=== PATIENT | male | born 1985 | race Caucasian/White ===

== ENCOUNTER 2022-08-20 08:41 | Outpatient (CLI) | payer OTHER ==
--- NOTE | 2022-08-20 09:16 | SLEEP CARE CONSULTATION ---
Information from patient questionnaire entered by Susana Bowen. I have reviewed and concur with the information entered by Susana Bowen. This document represents the service I personally performed and the decisions made by me, Alisha Hanson ARNP. History of Present Illness Service Date and Time: 08/20/2022 0841 Reason for Visit: New patient Chief Complaint: reports: Snoring, Observed pauses in breathing, Frequent awakenings at night Date of Onset: 3+YRS Usual bedtime: 9-10PM Time it takes to fall asleep: 5MIN Snores at night: Yes Observed to quit breathing while asleep: Yes Sleeps alone due to snoring: No Number of times waking at night: 2-3 Reasons for waking at night: reports: Snoring, Gasping for air (once in a while, if on his back), Other (NOISE). denies: Choking Toss, Turn, or Twitch while sleeping: Yes Recalls having dreams: No Usually gets out of bed at: 5-7 AM Feels refreshed in the morning: No Morning headache: No Sleepy or fatigued during the day: Yes Ever fallen asleep while driving: Yes (drowsy driving; no accidents) Takes day naps: No Dreams during day naps: No Prior sleep studies: Yes Year and Where: [employer] 2012 Additional HPI information: I had the pleasure of seeing NISA KEARNS today regarding the possibility of him having a sleep disorder. His current complaints are snoring, observed pauses in breathing and frequent night awakenings. He states he comes in because everyone is complaining of his snoring. His will push him to turn on his left side to reduce his snoring. He was previously tested and diagnosed with mild sleep apnea 5.1 in 2013 here at [facility], his non-supine AHI was 2.2. He did not want to use a CPAP at that time. He comes back because other have told him what a difference using a CPAP made for them. He does not always feel rested in the morning. He is ok during the day if he stays busy. If he sits down, he will fall asleep. 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 Patient is and lives in [place]. Have you smoked in the past 12 months: No Alcohol use: Yes Alcohol amount and frequency: 2-3 DRINKS WEEKLY Caffeine use: Yes Caffeine amount and frequency: 1 DAILY Family History Family history of sleep disordered breathing: No Allergies and Home Medications Known drug allergies: No Drug allergies reviewed: Yes Home medication list reviewed: Yes (no daily medications) Review of Systems Weight gain over past 5 years: 10 Cardiovascular: denies: high blood pressure Gastrointestinal: reports: heartburn (tums as needed) Neurological: denies: headaches Psychiatric: denies: anxiety, depression Ear/Nose/Throat: reports: wisdom teeth removed. denies: tonsillectomy Endocrine: denies: thyroid disease Immunologic: denies: allergies to food or environment Physical Exam Vital signs obtained and entered by: SUSANA Valdez MA Blood Pressure: 98/62 (LEFT ARM) Cuff size: regular Heart Rate: 61 O2 Saturation: 99 Height: 5 ft 9.5 in Weight: 188 lb 3.2 oz Body Mass Index: 27.3 BMI Classification: Overweight Neck circumference: 16.25 Mouth and throat: narrow oropharynx Soft palate: long Hard palate: normal Uvula: normal Uvula visualization: 0% Mallampati Class IV Tongue: enlarged in size with teeth stacy on lateral edges Tonsils: small Neck: normal w/o lymphadenopathy or thyromegaly Heart: regular rate and rhythm Lungs: clear bilaterally Impression and Plan 1. Suspected Obstructive Sleep Apnea-Hypopnea Syndrome, as previously diagnosed and as suggested by a history of loud and irregular snoring, observed cessation of breath while asleep, gasping or choking in sleep, frequent awakening during the night, unrefreshed sleep, and excessive daytime sleepiness. Narrow oropharynx and obesity are common predisposing factors for obstructive sleep apnea-hypopnea syndrome. I recommend proceeding to polysomnography to confirm the diagnosis and to assess severity. If the patient has significant sleep disordered breathing, a manual CPAP titration study will also be performed to find the optimal treatment pressure. I informed the patient of what the sleep studies involve and after some discussion, obtained agreement to proceed. The pathophysiology of obstructive sleep apnea-hypopnea syndrome was discussed with the patient and health risks of cardiovascular and cerebrovascular disease if not treated. 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 Patient agreed to plan. * Schedule polysomnography +- manual CPAP titration study and return in 1-2 weeks after the study to discuss result and initiate therapy. * Avoid long distance driving or driving when feeling sleepy. * Avoid alcohol, sedative and muscle relaxant around bedtime. * Attempt to lose weight. * Review instructions provided by trained office staff on how to prepare for the sleep study. * Return for follow-up after sleep study completed. Counseling Topics: Weight loss health impact Visit Type: In Office Time Spent with Patient (minutes): 21 Provider Statement: I spent 100% of the Face to Face Visit with the patient with greater than 50% spent counseling the patient and coordination of care.
[2022-08-20 09:44] VITALS: BP 98/62
== END 2022-08-20 08:42 | disposition home or self-care (01) ==
LOC: SC 08:41
PROVIDERS: ATTEND Nurse Practitioner Family
DX: R06.83 Snoring (principal); G47.8 Other sleep disorders; R06.81 Apnea, not elsewhere classified; G47.10 Hypersomnia, unspecified; E66.3 Overweight; Z68.27 Body mass index [BMI] 27.0-27.9, adult
CPT/HCPCS: 99202; 99212

== ENCOUNTER 2022-10-15 08:51 | Outpatient (CLI) | payer OTHER | END 2022-10-15 08:52 | disposition home or self-care (01) | LOC: SC 08:51 | PROVIDERS: ATTEND Nurse Practitioner Family | DX: G47.33 Obstructive sleep apnea (adult) (pediatric) (principal); R09.02 Hypoxemia | CPT/HCPCS: 95806 ==

== ENCOUNTER 2022-10-23 10:16 | Outpatient (CLI) | payer OTHER ==
--- NOTE | 2022-10-23 11:03 | Sleep Patient Instructions ---
Sleep Center Visit Summary - Patient Visit Information Reason for Visit: Sleep study followup - Patient Instructions Instructions Attached: CPAP, CPAP Dc Additional Instructions: You are being started on CPAP therapy with pressure setting at 4-15 cmH2O. You will need to call the sleep care office to set up your follow up once you have your APAP machine and we will schedule a visit to check compliance and response to therapy at that time. You may call the office with any concerns about pressure feeling too low or too much for adjustment, if needed. You should contact DME for any questions or concerns about mask or equipment. Please follow up in the sleep care office one month after obtaining new CPAP. - Clinic Information Contact: Merged with [facility] [address] [place] [address] [email or web address] T: [phone]
--- NOTE | 2022-10-23 11:06 | SLEEP CARE CONSULTATION ---
Information from patient questionnaire entered by Christal Bowen. I have reviewed and concur with the information entered by Christal Bowen. This document represents the service I personally performed and the decisions made by , Alisha Hanson ARNP. History of Present Illness Service Date and Time: 10/23/2022 1016 Initial [place] Sleepiness Scale score: 16 (06/19/22) Current [place] Sleepiness Scale score: 14 (10/23/22) Additional HPI information: NISA KEARNS returns for follow up and results of the recently performed home sleep study. I explained the pathophysiology behind obstructive sleep apnea. We then spent quite a bit of time discussing different treatment options. For mild obstructive sleep apnea, surgery and oral appliance are alternatives to nasal CPAP therapy but in moderate or severe cases, nasal CPAP is the most effective and reliable treatment. I reviewed the impact of weight changes on sleep apnea and strongly recommended losing weight. After some discussion, the patient opted to go with the nasal CPAP therapy. Nasal autoCPAP set at 4-15 cmH20 will be ordered with rationale explained. A manual titration study will be ordered if unable to find optimal pressure with office adjustments. I explained how CPAP machine works and what to expect when using the machine. Using CPAP every night in order to get used to it was emphasized. Patient advised to put CPAP mask on before getting into bed so as not to fall asleep without CPAP. To assist acclimation to CPAP use, it could also be used for a short time during day while reading or watching TV. The patient was instructed to call the CPAP supplier to discuss any mechanical problem that may occur. If the mask given is uncomfortable or is difficult to keep on through the night even with adjustment, contact the CPAP supplier as many will replace with another mask style if notified before 30 days. If snoring or perceives is not getting enough air or too much air from the machine, notify this office. Patient counseled not drink alcohol less than 4 hours before bedtime as it can increase snoring and apnea. Patient was cautioned about risks of drowsy driving until sleepiness symptoms resolve. Patient denies drowsy driving. Sleep Study - Results Type of Sleep Study: Home sleep study (COMPLETED 10/15/22) Prior sleep studies: Yes Year and Where: [employer] 2013 Polysomnography/Home Sleep Study results: Physician Impression: The quality of the study is good. The length of the study is adequate (> 240 minutes). Please also see the tabulated and graphic data. 1. Obstructive Sleep Apnea-Hypopnea (ICD-10 G47.33), moderate, with an AHI of 27.6/hr and lay SaO2 of 82%. During the study, the patient had 139 apneas (139 obstructive, 0 central, 0 mixed) and 29 hypopneas. The longest episode lasted 59.5 seconds. The respiratory events occu rred predominantly during supine sleep (supine AHI was 51.7 and non-supine, 7.54). 2. Hypoxemia (ICD-10 R09.02), mild, with the lowest oxygen saturation of 82 % and 14.2 minutes with SaO2 under 90%. Baseline oxygen saturation was normal (Average oxygen saturation was 94%). Allergies and Home Medications Known drug allergies: No Drug allergies reviewed: Yes Home medication list reviewed: Yes (no changes) Allergy and home medication list: Allergies No Known Drug Allergies Allergy (Verified 10/23/22 09:04) Review of Systems Review of systems same as previous: Yes (no changes) Physical Exam Vital signs obtained and entered by: CHRISTAL Valdez MA Blood Pressure: 122/74 (LEFT ARM) Cuff size: regular Heart Rate: 46 O2 Saturation: 99 Height: 5 ft 9.5 in Weight: 197 lb 9.6 oz Body Mass Index: 28.8 BMI Classification: Overweight Impression and Plan 1. Obstructive Sleep Apnea-Hypopnea Syndrome, moderate, with lowest oxygen saturation of 82%. Obviously this is the cause of the patients symptoms of unrefreshed sleep, and excessive daytime sleepiness. As mentioned above, the patient will be started on nasal autoCPAP therapy with pressure set at 4-15 cmH2 O. A manual titration study will be completed if unable to find optimal treatment pressure with office adjustments. Compliance guidelines also reviewed. A copy of compliance guidelines will be given for reference at check out. Because the apnea is more severe supine, I instructed to avoid sleeping supine using pillow positioning until able to start CPAP use. 2. Hypoxemia, mild, with the lowest oxygen saturation of 82 % and 14.2 minutes with SaO2 under 90%. His baseline oxygen saturation was normal with an average oxygen saturation of 94%. * Nasal auto CPAP therapy, pressure at 4-15 cmH2O. * Attempt to lose weight. * Avoid alcohol consumption near bedtime. * Avoid supine sleep until using CPAP. * The patient is again cautioned about driving until sleepiness completely resolves. * Return one month after CPAP obtained. I will assess response to therapy and compliance at that time. Counseling Topics: Sleeping position, Weight loss health impact Visit Type: In Office Time Spent with Patient (minutes): 20 Provider Statement: I spent 100% of the Face to Face Visit with the patient with greater than 50% spent counseling the patient and coordination of care.
[2022-10-23 11:07] VITALS: BP 122/74
== END 2022-10-23 10:17 | disposition home or self-care (01) ==
LOC: SC 10:16
PROVIDERS: ATTEND Nurse Practitioner Family
DX: G47.33 Obstructive sleep apnea (adult) (pediatric) (principal); E66.3 Overweight; Z68.28 Body mass index [BMI] 28.0-28.9, adult
CPT/HCPCS: 99212; 99213